=== PATIENT | female | born 1990 | race Caucasian/White ===

== ENCOUNTER 2020-06-03 13:47 | Emergency (ER) | payer OTHER ==
[~2020-06-03] VITALS: Ht 154.9 cm; Wt 75.0 kg
[2020-06-03] MEDS ORDERED: ACYC200L PO (14:07)
[2020-06-03 18:00] VITALS: BP 121/79
== END 2020-06-03 18:03 | disposition home or self-care (01) ==
LOC: EMS 13:55
DX: R13.10 Dysphagia, unspecified (principal); Z88.1 Allergy status to other antibiotic agents; Y04.2XXA Assault by strike against or bumped into by another person, initial encounter; Y93.89 Activity, other specified; Y92.89 Other specified places as the place of occurrence of the external cause; Y99.8 Other external cause status
CPT/HCPCS: 70490; 99284; Z7502